=== PATIENT | male | born 1955 | race Caucasian/White ===

== ENCOUNTER 2017-04-12 13:51 | Inpatient (IN) | payer MEDICARE, BC ==
[2017-04-12] VITALS (8 sets, daily range): BP systolic 108–150; BP diastolic 54–78
[~2017-04-12] VITALS: Ht 167.6 cm; Wt 98.6 kg
--- NOTE | ~2017-04-12 | PR ---
[place], [place] PROGRESS NOTE NAME: NANCY EM UNIT #: [id number] ROOM: 518 DOCTOR: JOSE DANIEL MENENDEZ DO BIRTHDATE: [birth year] DOS: 04/15/2017 SUBJECTIVE: The patient is noted to be seen and evaluated today with Dr. Mackenzie. The patient is alert, awake and responsive. The patient denies any nausea, vomiting, diarrhea, chest pain or shortness of breath. PHYSICAL EXAMINATION: VITAL SIGNS: Temperature 97.8, pulse 93, respiratory rate 20, blood pressure 113/86, pulse ox of 98 on 3 liters nasal cannula. HEENT: Chronic obesity. No changes. NECK: Supple. CARDIOVASCULAR: S1, S2 audible. LUNGS: Noted without crackles. Mild expiratory wheeze. ABDOMEN: Soft, obese, nontender. EXTREMITIES: Mild chronic edema. LABORATORY DATA: White cell count 11.1, hemoglobin 9.4, platelet count 190. Chemistry: Sodium of 132, potassium 4.4, BUN 30, creatinine 3.65, glucose of 298. INR of 2.6. MICROBIOLOGY: Blood cultures preliminary shows no bacterial growth. IMAGING: Chest x-ray from yesterday showed mild cardiomegaly, hyperaerated lungs without any acute pulmonary disease. IMPRESSION: 1. Acute hypercapnic and hypoxic respiratory failure secondary to acute exacerbation of chronic obstructive pulmonary disease, improving. 2. Chronic nicotine dependence. 3. End-stage renal disease, on dialysis. 4. Atrial fibrillation with rapid ventricular rate, rate controlled. Cardiology following. 5. Metabolic encephalopathy, resolved. 6. Chronic moderate obesity. 7. Hypercoagulable state. PLAN: 1. Continue antibiotic, steroid, bronchodilator. The patient can be started on doxycycline 100 mg p.o. b.i.d. 2. The patient is planning to get dialysis per Nephrology. 3. The patient has been switched to Cardizem p.o. by Cardiology. 4. Additional treatment changes will be made for the patient based on the improvement in the respiratory status or other changes. JOSE DANIEL MENENDEZ DO [place], [place] PROGRESS NOTE NAME: NANCY EM UNIT #: [id number] ROOM: [facility] DOCTOR: JOSE DANIEL MENENDEZ DO BIRTHDATE: [birth year] JOAQUIN MACKENZIE MD CM:PNRAUDEL [id number] JOSE DANIEL MENENDEZ DO 04/15/17 1238 interface
--- NOTE | ~2017-04-12 | PR ---
[place], [place] PROGRESS NOTE NAME: [id number] UNIT #: [id number] ROOM: 518 DOCTOR: JOSE DANIEL MENENDEZ DO BIRTHDATE: [birth year] DOS: 04/14/2017 SUBJECTIVE: The patient is noted to be seen and evaluated today with Dr. Mackenzie. The patient is alert, awake and responsive. The patient denies any nausea, vomiting, diarrhea, lightheadedness, dizziness, chest pain or shortness of breath. The patient is no longer confused today and has plans to get dialysis later today. OBJECTIVE: VITAL SIGNS: Temperature 97.2, pulse 94, respiratory rate 20, blood pressure 111/48, pulse ox is 100% on 3.5 liters nasal cannula. GENERAL: The patient is awake, alert, no distress. HEENT: Show no change. CARDIOVASCULAR: S1, S2 audible. LUNGS: Diminished at the bases. No rales, rhonchi or wheezing. EXTREMITIES: No cyanosis, erythema. AV fistula noted on the right upper extremity. NEUROLOGIC: Grossly intact today. No focal neurological deficits. SKIN: No change. LABORATORY DATA: Blood gas: pH of 7.3, pCO2 of 50.7, pO2 of 69.3, bicarbonate of 27.5. CBC: White cell count of 15.4, hemoglobin 9.1, platelet count of 210. Chemistry: Sodium of 133, BUN of 37, chloride of 94, creatinine of 4.88, glucose of 267. INR of 2.5. Blood cultures are pending to date. IMAGING: Chest x-ray done this morning showed mild cardiomegaly, hyperaerated lungs without acute pulmonary disease. IMPRESSION: 1. Acute hypercapnic and hypoxic respiratory failure secondary to acute exacerbation of chronic obstructive pulmonary disease. 2. Chronic nicotine dependence. 3. End-stage renal disease, on dialysis. 4. Atrial fibrillation with rapid ventricular response. 5. Questionable pneumonia versus atelectasis of the right lower lobe noted. 6. Metabolic encephalopathy, resolved. 7. Chronic anticoagulation/hypercoagulable state. 8. Chronic moderate obesity. PLAN: 1. Continue antibiotics, steroids and bronchodilators. 2. Continue BiPAP and maintain oxygen above 90%. 3. The patient is planning to get dialysis per nephrology. 4. The patient is noted to be on Cardizem drip and cardiology has been following. 5. Additional treatment changes will be made for the patient based on improvement in the respiratory status or any other changes. [place], [place] PROGRESS NOTE NAME: NANCY EM UNIT #: [id number] ROOM: 8 DOCTOR: JOSE DANIEL MENENDEZ DO BIRTHDATE: [birth year] JOSE DANIEL MENENDEZ DO JOAQUIN MACKENZIE MD CM:PNRAUDEL [id number] JOSE DANIEL MENENDEZ DO 04/14/17 1609 interface
--- NOTE | ~2017-04-12 | PR ---
[place], [place] PROGRESS NOTE NAME: NANCY EM UNIT #: [id number] ROOM: 518 DOCTOR: JOAQUIN SWEENEY MD BIRTHDATE: [birth year] DOS: 04/14/2017 SUBJECTIVE: The patient was independently seen with [id number] encounter. The history was confirmed from the patient, personally physical examination performed. All the labs were reviewed. Any changes in treatment, other recommendations were personally made for today's visit. The patient has been noted fully awake and alert at this time, has used the BiPAP as ordered with improvement in the mental status. Shortness of breath seemed to be decreased for the patient significantly as well. The patient denies symptoms of chest pain. He has been noted with some cough. OBJECTIVE: VITAL SIGNS: For the patient which were recorded showed the temperature noted as normal at this time, respiratory rate 20, heart rate 94, blood pressure 111/48. Pulse oxygen saturation of the patient was noted on 3 liters canula 93% saturation. HEENT: Chronic obesity. NECK: Supple. CARDIOVASCULAR: S1, S2 audible. LUNGS: The patient was noted without any crackles. The expiratory wheezing was noted decreased in the lungs bilaterally. ABDOMEN: Soft, obese, nontender. EXTREMITIES: Shows mild edema, chronic changes. LABORATORY DATA: Arterial blood gas this morning 3.5 liters nasal cannula, pH of 7.35, pCO2 of 50.7, pO2 of 69.3. Renal function panel for today, BUN 37, creatinine 4.88, glucose 267. INR was noted and repeated, which is 2.7. IMPRESSION: Marked improvement in the respiratory status was noted for this patient with resolving acute chronic hypoxic respiratory failure with exacerbation of chronic obstructive pulmonary disease responding to treatment very well. PLAN OF TREATMENT: The patient will be recommended continuation of the BiPAP as ordered. Continuation of current dose of corticosteroids. Continue oxygen supplementation intermittently when the patient is not using the BiPAP. Additional treatment changes need to be made for patient with the progression of the illness. The note which was done by the medical collections specialist was approved. [place], [place] PROGRESS NOTE NAME: NANCY EM UNIT #: [id number] ROOM: 518 DOCTOR: AZIZ JOAQUIN MONTEMAYOR MD BIRTHDATE: [birth year] JOAQUIN MATHIS MD CM:ISIDORO [id number] JOAQUIN MONTEMAYOR MD 04/15/17 0246 interface
--- NOTE | ~2017-04-12 | CON ---
[place], [place] REPORT OF CONSULTATION NAME: NANCY EM UNIT #: [id number] ROOM: 518 DOCTOR: JOAQUIN SWEENEY MD BIRTHDATE: [birth year] DOS: 04/13/2017 REASON FOR CONSULTATION: The consultation requested by the Hospitalist Service for assessment of symptoms of COPD exacerbation with a decreased responsiveness. The patient was personally seen with [id number] encounter today. Physical assessment performed. The history was confirmed. The assessment and management, which has been done for this patient today was personally made for his management as well as the changes made for the patient personally done in the management after my personal assessment. The note which was done by the bilingual medical receptionist was for the consultation was approved as well. HISTORY OF PRESENT ILLNESS: This is a 61-year-old white male who has been admitted to the hospital on 04/12/2017 under care of the hospitalist services. The patient was brought to the hospital. The patient received the hemodialysis for renal failure and the patient developed significant tachycardia. The patient's blood pressure was also noted to be elevated after that. He has been currently admitted to the hospital, noted with progressive change in mental status with decreased responsiveness. The arterial blood gases of the patient was done shows evidence of significant hypercapnia and reduced pH. The patient was also noted expiratory wheezing. He has been described some symptoms of shortness of breath previously. REVIEW OF SYSTEMS: The review of this patient could not be performed. The history has been essentially reviewed for documentation by other physicians note. The patient had not been able to give me the history. PAST MEDICAL HISTORY: 1. The patient was known with history of chronic atrial fibrillation. 2. End-stage renal failure, on hemodialysis. 3. Chronic obesity. PAST SURGICAL HISTORY: 1. Reported AV fistula formation. 2. Surgery of the knee, neck, and appendectomy. SOCIAL HISTORY: The patient has been reported with history of tobacco use, a pack of cigarettes per day for the past 50 years as reported in the history. FAMILY HISTORY: History of diabetes mellitus, hypertension and coronary artery disease. HOME MEDICATIONS: Reported use of aspirin, citalopram, gabapentin, Keppra, Synthroid, Claritin, magnesium oxide, Protonix, Renvela, simvastatin, Flomax and Coumadin. DRUG ALLERGIES: REPORTED NO KNOWN DRUG ALLERGIES. PHYSICAL EXAMINATION: GENERAL: A 61-year-old male who has been currently noted at this time with [place], [place] REPORT OF CONSULTATION NAME: [facility] EM [facility]: [id number] UNIT #: [id number] ROOM: 518 DOCTOR: DELFINA MONTEMAYOR MD,JOAQUIN BIRTHDATE: [birth year] decreased responsiveness, arousable to vocal commands, but does not have any verbal communication at the present time. VITAL SIGNS: The patient's height was recorded as 5 feet 6 inches, weight 217 pounds with BMI of 35.0. The vital signs, which was recorded for this patient shows the temperature was noted as normal. Respiratory rate 18-20, the heart rate of 150 on admission with atrial fibrillation, currently noticed 75 beats per minute. Blood pressure 130/56 this morning and previously noted as 140/67. Intake for the patient is 1080, output was none because of the renal failure history. Pulse oxygen saturation for the patient on 2-3 L nasal cannula noted 98% saturation. HEENT: Moderate obesity. Head was atraumatic. Decreased pharyngeal space, high tongue base crowding of soft tissue structures. LUNGS: Noted with generalized reduced air entry of the lungs bilaterally, was noted with expiratory wheezing in the lungs. There were no crackles. ABDOMEN: Soft, nontender with obesity. EXTREMITIES: The patient was noted with edema. CENTRAL NERVOUS SYSTEM: Decreased responsiveness and further examination could not be performed. SKIN: Showed no lesions or rashes. MUSCULOSKELETAL: Does not show any acute deformities. LABORATORY DATA: Lactic acid yesterday on admission noted as 1.9. CBC yesterday on admission, hemoglobin 10.6, hematocrit 33.6, WBC count normal, platelet count was normal. PT/INR for patient noted 2.3 yesterday, which was therapeutic. CMP of the patient that was done yesterday shows BUN of 10, creatinine 2.79, glucose 174, sodium 133. CPK 610, CK-MB of 10.0. Troponin minimally elevated at 0.50. The repeat troponin of patient essentially noted the same as yesterday. CBC that was done this morning for the patient shows hemoglobin 9.5, hematocrit 30.0, WBC count normal, platelet count was normal. The INR this morning was still noted subtherapeutic as 2.2. CMP this morning, BUN 21, creatinine 3.93, glucose 283. Sodium 134. Arterial blood gas this morning, 2 liters, pH of 7.31, pCO2 of 55, pO2 of 68.9. RADIOLOGY DATA: Chest x-ray shows mild patchy area of infiltration was suspected in the right lower lobe. There was no significant visible pleural effusions or other abnormalities. IMPRESSION: 1. The patient who has been currently admitted to the hospital noted with acute hypercapnic and hypoxic respiratory failure secondary to acute exacerbation of chronic obstructive pulmonary disease, likely. 2. Chronic nicotine dependence. 3. End-stage renal failure, on hemodialysis. 4. Atrial fibrillation with rapid ventricular response. 5. Questionable pneumonia versus atelectasis of the right lower lobe was also currently noted. 6. Chronic anticoagulation, which has been noted therapeutic at the present time. 7. Change in mental status secondary to the above. 8. History of chronic moderate obesity as well. [place], [place] REPORT OF CONSULTATION NAME: NANCY EM UNIT #: [id number] ROOM: 518 DOCTOR: DELFINA MONTEMAYOR MD,JOAQUIN BIRTHDATE: [birth year] PLAN OF MANAGEMENT: The patient has been started on the BiPAP for this patient in the settings of 17/05 to improve the ventilatory status and hypoxemia. Arterial blood gas will be done in the next couple of hours to reassess with the patient, ventilatory improvement and hypoxemia. Further decision change in treatment would be done based on progression of the illness. I will be ordering PA lateral chest x-ray of the patient for clear assessment of current right lower lobe abnormality to determine if there is any pneumonia or history of atelectasis. At this time, the patient's current clinical history not suggestive of any findings of acute pneumonia. Other supportive therapy, plan of management to be continued as in progress. Bronchodilator will be given every 4 hours. Use of the intravenous Solu-Medrol for the medical management of COPD is already noted in progress. Additional treatment changes will be made for this patient based on the improvement in the respiratory status or any other changes. JOAQUIN MATHIS MD CM:CONSTR:REPORT OF CONSULTATION 1227 04/14/17 0359 interface
--- NOTE | ~2017-04-12 | PR ---
[place], [place] PROGRESS NOTE NAME: NANCY EM UNIT #: [id number] ROOM: 518 DOCTOR: JOAQUIN SWEENEY MD BIRTHDATE: [birth year] DOS: 04/15/2017 ADDENDUM PULMONARY PROGRESS NOTE The patient was seen and examined today with [id number] encounter. The history was confirmed, physical examination personally performed, the labs were personally reviewed and a decision in changes in medical management personally made for today's visit. The note which was done by the director global medical affairs was approved. SUBJECTIVE: The patient was seen and examined on 04/15/2017. He has been noted without any ongoing acute new respiratory complaints at the present time. Shortness of breath has been improving. There were no symptoms of chest pain. The patient has not reported any symptoms of hemoptysis. OBJECTIVE: VITAL SIGNS: For the patient, which has been recorded for this patient showed the temperature of the patient noted as normal. Respiratory rate 20, heart rate 93, blood pressure 132/86 to 142/68. HEENT: Chronic obesity. NECK: Supple. CARDIOVASCULAR: S1, S2 audible. LUNGS: For this patient was noted without any wheezing or crackles. ABDOMEN: Soft, nontender. LABORATORY DATA: INR today were noted 2.6, which is therapeutic. BMP: BUN 30, creatinine 3.65. IMPRESSION: The patient has been noted with continued gradual reduction and improvement and resolution of the acute exacerbation of chronic obstructive pulmonary disease with acute tracheobronchitis, improving mental status changes with acute on chronic hypercapnic and hypoxic respiratory failure. The patient has prospect antibiotic will be discontinued. PLAN OF TREATMENT: The patient had been started on antibiotics such as doxycycline orally. Continuation of the corticosteroids. Continue use of the BiPAP. Discharge planning could be made for this patient for the home, maybe in the next 24 hours. Usual care. Continued use of the BiPAP at night time. Outpatient assessment will be recommended for patient for obstructive sleep apnea disorder upon discharge. [place], [place] PROGRESS NOTE NAME: NANCY EM UNIT #: [id number] ROOM: 518 DOCTOR: JOAQUIN SWEENEY MD BIRTHDATE: [birth year] JOAQUIN MATHIS MD CM:PNTRANS [phone] JOAQUIN MONTEMAYOR MD 04/15/171916 interface
--- NOTE | ~2017-04-12 | CON ---
[place], [place] REPORT OF CONSULTATION [id number] UNIT #: [id number] ROOM: 518 DOCTOR: JOSE DANIEL MENENDEZ DO BIRTHDATE: [birth year] DOS: 04/13/2017 REASON FOR CONSULTATION: COPD exacerbation. CHIEF COMPLAINT: The patient initially came in for elevated blood pressure and tachycardia. HISTORY OF PRESENT ILLNESS: The patient initially was at the dialysis, getting treatment and had pulse of 156 and possible AFib, but too rapid to interpret heart rate. The patient did admit to having history of AFib, denied any complaint. The patient refused to come initially, but he was told at dialysis to come and report to the ED. The patient stated he did not feel fluttering of chest, shortness of breath or dizziness or chest pain at that time while he was receiving dialysis. He said that he has been receiving dialysis for over 3 years, on Wednesday, Wednesday, Wednesday. The patient had shortness of breath. The patient denied any cough. The patient denied any sputum production. The patient continues to smoke. PAST MEDICAL HISTORY: 1. Atrial fibrillation. 2. End-stage renal disease on dialysis. 3. Severe protein calorie malnutrition. PAST SURGICAL HISTORY: AV fistula, history of knee surgery, history of neck surgery, history of appendectomy. SOCIAL HISTORY: Current smoker, does not drink alcohol. There is history of illicit drug use. FAMILY HISTORY: Mother age of 84, , father age of 74, . ALLERGIES: No known allergies. HOME MEDICATIONS: Aspirin 81 mg p.o. daily, escitalopram 10 mg p.o. daily, gabapentin 300 mg p.o. daily, Levacetam 250 mg p.o. b.i.d. on Wednesday, Wednesday and Wednesday, levothyroxine 112 mcg p.o. daily, Claritin 10 mg p.o. every other day, magnesium oxide 400 mg p.o. b.i.d., Protonix 40 mg daily, Renvela 800 mg p.o. t.i.d., simvastatin 20 mg p.o. daily, Tamsulosin 0.4 mg p.o. daily, Warfarin 2 mg p.o. daily. REVIEW OF SYSTEMS: CONSTITUTIONAL: Denies fever, chills, weight gain, weight loss. EYES: Denies burning, redness, or tenderness. ENT: No sore throat, hoarseness, otalgia, postnasal drainage. CARDIOVASCULAR: Denies anginal pain or palpitations. Denies lower extremity edema. RESPIRATORY: Mild shortness of breath. Denies sputum or cough. Denies paroxysmal nocturnal dyspnea. GASTROINTESTINAL: Denies dysphagia, nausea, vomiting, diarrhea, abdominal pain, melena, rashes. [place], [place] REPORT OF CONSULTATION NAME: NANCY EM UNIT #: [id number] ROOM: 518 DOCTOR: JOSE DANIEL MENENDEZ DO BIRTHDATE: [birth year] SKIN: Denies lesions or rashes. CENTRAL NERVOUS SYSTEM: Denies dizziness, diplopia, headache or syncopal episode. Remaining systems were reviewed with the patient. They were all negative. PHYSICAL EXAMINATION: VITAL SIGNS: Temperature of 97.9, pulse of 75, respiratory rate of 18, blood pressure of 130/66, pulse ox 98% on 2 liters of nasal cannula. GENERAL: Responsive, mild distress. HEAD: Normocephalic, atraumatic. ENT: No lesions or scars of the eye, nonicteric. Nares patent. No pharyngeal erythema. NECK: Without lesion mass. Trachea midline. HEART: Tachycardia. Carotids free of bruit, muffled heart sounds. LUNGS: Shortness of breath, mild cough. No rales, rhonchi, stridor, mild expiratory wheezing and rhonchi. ABDOMEN: Soft, positive bowel sounds, nontender, nondistended, obese abdomen. EXTREMITIES: Left upper extremity AV fistula noted. No clubbing, no cyanosis, no erythema, no edema. NEUROLOGIC: No focal neurological deficit. PSYCHOLOGIC: Poor historian. SKIN: Ecchymosis over bilateral upper extremities. LABORATORY DATA: White cell count of 6, hemoglobin of 9.5 and platelet count of 207 was noted on 04/13/2017, white cell count of 7.5, hemoglobin of 10.6 and platelet count of 208 was noted on 04/12/2017. Chemistry: Sodium of 134, carbon dioxide of 27, BUN of 21, creatinine of 3.93 and glucose of 283 was noted on 04/13/2017, sodium of 133, potassium of 4.1, carbon dioxide of 29, BUN of 10, creatinine of 2.79 and glucose of 174 was noted on 04/12/2017. Blood gas of pH of 7.3, pCO2 of 55.7, HCO3 of 27.9, was noted on 04/13/2017. INR of 2.2. MICROBIOLOGY: Blood cultures are pending to date. IMAGING: Chest x-ray done on 04/12/2017 showed mild peribronchial thickening and patchy airspace opacity right lower lobe, finding may represent bronchitis and right lower lobe infiltrate. ASSESSMENT AND PLAN: 1. BiPAP settings were changed by Dr. Mackenzie. 2. ABGs were ordered. 3. Please refer to Dr. Mackenzie's assessment and plan. Thank you for the consultation. JOSE DANIEL MENENDEZ DO [place], [place] REPORT OF CONSULTATION NAME: MARIA ANTONIANANCY UNIT #: [id number] ROOM: 518 DOCTOR: JOSE DANIEL MENENDEZ DO BIRTHDATE: [birth year] JOAQUIN MACKENZIE MD CM:CONSTR:REPORT OF CONSULTATION 1048 04/13/17 1902 interface
--- NOTE | 2017-04-12 13:51 | NUR ---
EKG WAS DONE BY MYSELF. EKG WAS UNAVALIABLE
[2017-04-12 14:18] LABS: BASO % 0.4 % (0.0-1.0); EOS # 0.2 10*3/uL (0.0-0.4); EOS % 2.8 % (1.0-4.0); HEMATOCRIT 33.6 % (42.0-52.0); HEMOGLOBIN 10.6 g/dl (14.0-18.0); LYMPH % 13.1 % (27.0-41.0); MEAN CELL VOLUME 98.2 fl (80.0-94.0); MEAN CORPUSCULAR HGB CONC 31.5 g/dl (33.0-37.0); MEAN PLATELET VOLUME 9.3 fl (9.6-12.3); MONO # 0.4 10*3/uL (0.1-1.0); MONO % 5.2 % (3.0-9.0); NEUT # 5.9 10*3/uL (2.3-7.9); NEUT % 77.8 % (47.0-73.0); PLATELET COUNT AUTOMATED 208 10*3/uL (130-400); RED BLOOD COUNT 3.42 10*6/uL (4.50-5.90); RED CELL DISTRI WIDTH 15.1 % (0-14.5); WHITE BLOOD COUNT 7.5 10*3/uL (4.8-10.8)
[2017-04-12 14:34] LABS: ALBUMIN 2.6 gm/dl (3.1-4.5); CREATININE 2.79 mg/dL (0.70-1.30); MAGNESIUM 2.1 mg/dL (1.5-2.1); POTASSIUM 4.1 mmol/L (3.5-5.1); TOTAL PROTEIN 7.6 gm/dL (6.4-8.2)
[2017-04-12 14:36] LABS: ACT PARTIAL THROMBO TIME 39.1 SECONDS (20.8-31.5); INTERNATIONAL NORM RATIO 2.3 (2.0-3.5)
[2017-04-12 14:51] LABS: CKMB 10.2 ng/ml (0.5-3.6); TROPONIN I 0.05 ng/ml (<0.045)
--- NOTE | 2017-04-12 15:06 | NUR ---
CARDIZEM INFUSING, PULSE IMPROVED TO 106 NOW.
--- NOTE | 2017-04-12 16:00 | NUR ---
PATIENT TO FLOOR VIA CART FROM ER BY RN. IV INTACT. WITH PATIENT. OXYGEN INTACT. PATIENT AWAKE, ALERT AND TALKING
--- NOTE | 2017-04-12 16:40 | NUR ---
A 61, admitted to 5E, under the services of VILLA Aguirre DO with a diagnosis of COPD EXACERBATION, PNEUMONITIS, A-FIB-RVR. Chief complaint is SOB. Patient arrived via ambulance from ER. Monitor applied. Initial assessment completed. Vital signs taken and recorded. VILLA AGUIRRE DO notified of admission to the unit. Orders received. See assessment for past medical history, medications and allergies. Patient and/or family oriented to unit. [facility] visitation policy reviewed. Clothing/patient valuable form completed. LYLE WALLER
--- NOTE | 2017-04-12 20:00 | NUR ---
PT RESTING QUIETLY IN BED. AWOKE EASILY. DENIES C/O PAIN. CARDIZEM INFUSING AT 10ML/HR ORDERED. HR IRR IN 100'S. PT ABLE TO MOVE TOES TO LT FOOT WHEN ASKED. CAST TO LLE DRY/INTACT. + THRILL/BRUIT NOTED TO FISTULA IN LUE. CALL LIGHT IN REACH.
--- NOTE | 2017-04-12 20:24 | NUR ---
DR. STRATTON NOTIFIED OF CRITICAL TROPONIN OF 0.057. NO N.O. RCVD AT THIS TIME.
[2017-04-12] MEDS ORDERED: ASPIR 8181 MG PO (20:30)
[2017-04-12] MEDS ORDERED: ESCITALOPRAM OX10 MG PO (20:35)
[2017-04-12] MEDS ORDERED: NEURONTIN300 MG PO (20:36)
[2017-04-12] MEDS ORDERED: LEVOXYL112 MCG PO (20:38)
[2017-04-12] MEDS ORDERED: CLARITIN10 MG PO (20:41)
[2017-04-12] MEDS ORDERED: MAGNESIUM OXID400 MG PO (20:42)
[2017-04-12] MEDS ORDERED: PANTOPRAZOLE SO40 MG PO (20:43)
[2017-04-12] MEDS ORDERED: RENVELA800 MG PO (20:44)
[2017-04-12] MEDS ORDERED: SIMVASTATIN20 MG PO (20:46)
[2017-04-12] MEDS ORDERED: SPRITAM250 MG PO ×2 (20:48→20:50)
[2017-04-12] MEDS ORDERED: TAMSULOSIN HCL0.4 MG PO (20:51)
[2017-04-12] MEDS ORDERED: WARFARIN SOD2 MG PO (20:52)
[2017-04-13] VITALS (13 sets, daily range): BP systolic 125–147; BP diastolic 54–79
[2017-04-13 07:38] LABS: BASO % 0.2 % (0.0-1.0); HEMOGLOBIN 9.5 g/dl (14.0-18.0); LYMPH # 0.5 10*3/uL (1.3-4.4); LYMPH % 8.4 % (27.0-41.0); MEAN CORPUSCULAR HGB CONC 31.7 g/dl (33.0-37.0); MEAN PLATELET VOLUME 9.3 fl (9.6-12.3); MONO # 0.1 10*3/uL (0.1-1.0); MONO % 1.2 % (3.0-9.0); NEUT # 5.3 10*3/uL (2.3-7.9); NEUT % 89.4 % (47.0-73.0); PLATELET COUNT AUTOMATED 207 10*3/uL (130-400); RED BLOOD COUNT 3.06 10*6/uL (4.50-5.90); RED CELL DISTRI WIDTH 15.3 % (0-14.5)
[2017-04-13 08:07] LABS: ACT PARTIAL THROMBO TIME 39.9 SECONDS (20.8-31.5); INTERNATIONAL NORM RATIO 2.2 (2.0-3.5)
[2017-04-13 08:10] LABS: ALBUMIN 2.4 gm/dl (3.1-4.5); CREATININE 3.93 mg/dL (0.70-1.30); MAGNESIUM 2.3 mg/dL (1.5-2.1); PHOSPHOROUS 3.4 mg/dL (2.5-4.9); POTASSIUM 4.1 mmol/L (3.5-5.1); TOTAL PROTEIN 7.1 gm/dL (6.4-8.2)
[2017-04-13 08:15] LABS: THYROID STIM HORMONE (HS) 0.602 uIU/ml (0.358-4.75)
[2017-04-13 08:33] LABS: ABG BASE EXCESS 1.5 mmol/L (-2.0-2.0); ABG HCO3 27.9 mmol/l (22-26); ABG O2 SATURATION 93.1 % (95-97); ARTERIAL BLOOD GAS PCO2 55.7 mmHg (35-45); ARTERIAL BLOOD GAS PH 7.318 (7.35-7.45); ARTERIAL BLOOD GAS PO2 68.9 mmHg (80-90)
--- NOTE | 2017-04-13 09:00 | NUR ---
case management attempted to visit with patient, patient was just placed on bipap, will see later today
--- NOTE | 2017-04-13 09:13 | NUR ---
DR. MATHIS ON FLOOR AWARE OF CONSULT.
--- NOTE | 2017-04-13 09:42 | NUR ---
DR. LARSEN AND DR. ROSALES IN TO SEE PT.
--- NOTE | 2017-04-13 09:45 | NUR ---
PT RESTING IN BED, AWAKENS BUT VERY DROWSY. BYPAP INUSE. CARDIZEM DRIP INFUSING WITH NO PROBLEM. BP 134/60 MANUALLY. CAST TO LEFT LEG, TOES RED ABLE TO MOVE WITH NO PROBLEM, SOME EDEMA NOTED TO LEFT FOOT. FISTULA TO LEFT ARM +BRUIT AND THRILL. CALL LIGHT IN REACH. BED ALARM ON.
[2017-04-13 11:12] LABS: VITAMIN D, 25-HYDROXY 10.9 ng/mL (30-100)
[2017-04-13 11:29] LABS: ABG BASE EXCESS 2.1 mmol/L (-2.0-2.0); ABG HCO3 27.7 mmol/l (22-26); ABG O2 SATURATION 94.5 % (95-97); ARTERIAL BLOOD GAS PCO2 50.7 mmHg (35-45); ARTERIAL BLOOD GAS PH 7.354 (7.35-7.45); ARTERIAL BLOOD GAS PO2 71.8 mmHg (80-90)
--- NOTE | 2017-04-13 11:39 | NUR ---
case management attempted to visit with patient, patient remains on bipap and is not able to talk with case management at this time
--- NOTE | 2017-04-13 12:24 | NUR ---
CALLED DR. CONRAD MADE AWARE UNABLE TO GET PT TO WAKE UP ENOUGH TO GIVE MEDICATIONS.
--- NOTE | 2017-04-13 12:41 | NUR ---
This nurse was asked to asked to evaluate patient's area to left buttocks. The area is red and blanchable. I would recommend hydraguard for prevention of area reopening.
--- NOTE | 2017-04-13 13:00 | NUR ---
SPOKE WITH PT WANTS TO TALK TO DOCTOR REGARDING HIS CONDITION. CALLED DR. CONRAD MADE AWARE AND GAVE NAME AND NUMBER.
--- NOTE | 2017-04-13 14:30 | NUR ---
PT DROWSY LYING IN BED WITH EYES CLOSED. BYPAP IN USE. REPOSITIONED IN BED. PT AWAKENS AND MOVES HIMSELF IN BED. CARDIZEM INFUSING WITH NO PROBLEM. CALL LIGHT IN REACH.
--- NOTE | 2017-04-13 16:45 | NUR ---
PT AWAKE AND ALERT ON BIPAP. PT REMOVED AND PLACED ON 3L NC. PT ALERT AND ORIENTED X3. RESP EASY AND NONLABORED. PT EATING DINNER WITHOUT DIFFICULTY. PM PILLS TAKEN. CARDIZEM INFUSING WITHOUT DIFFICULTY. CALL LIGHT IN REACH. WILL MONITOR
--- NOTE | 2017-04-13 22:00 | NUR ---
PT STATES THAT PAIN MED WAS EFFECTIVE FOR PAIN RELIEF.
[2017-04-14] VITALS (13 sets, daily range): BP systolic 111–168; BP diastolic 48–84
--- NOTE | 2017-04-14 00:05 | NUR ---
pt placed on bipap post tx
--- NOTE | 2017-04-14 01:33 | NUR ---
24 HR chart check completed.
[2017-04-14 06:50] LABS: HEMOGLOBIN 9.1 g/dl (14.0-18.0); MEAN CORPUSCULAR HGB CONC 30.3 g/dl (33.0-37.0); MEAN PLATELET VOLUME 9.7 fl (9.6-12.3); NUCLEATED RED BLOOD CELL 0.2 % (0.0-0.0); PLATELET COUNT AUTOMATED 210 10*3/uL (130-400); RED BLOOD COUNT 3.03 10*6/uL (4.50-5.90); RED CELL DISTRI WIDTH 15.2 % (0-14.5); WHITE BLOOD COUNT 15.4 10*3/uL (4.8-10.8)
[2017-04-14 07:14] LABS: ALBUMIN 2.4 gm/dl (3.1-4.5); CREATININE 4.88 mg/dL (0.70-1.30); POTASSIUM 4.9 mmol/L (3.5-5.1)
[2017-04-14 07:19] LABS: INTERNATIONAL NORM RATIO 2.5 (2.0-3.5)
[2017-04-14 07:33] LABS: ABG BASE EXCESS 1.9 mmol/L (-2.0-2.0); ABG HCO3 27.5 mmol/l (22-26); ABG O2 SATURATION 92.7 % (95-97); ARTERIAL BLOOD GAS PCO2 50.7 mmHg (35-45); ARTERIAL BLOOD GAS PH 7.353 (7.35-7.45); ARTERIAL BLOOD GAS PO2 69.3 mmHg (80-90)
[2017-04-14 07:38] LABS: POLYCHROMASIA SLIGHT; TOTAL CELLS COUNTED 100 #CELLS
[2017-04-14 07:39] LABS: PLATELET SUFFICIENCY NORMAL (NORMAL)
--- NOTE | 2017-04-14 08:22 | NUR ---
PATIENT TO DIALYSIS.
--- NOTE | 2017-04-14 09:29 | NUR ---
Pediatric Genetic Counselor in to talk to patient. Patient states lives at home with . There are few steps in the home. Physician: emily alston Pharmacy: Home health services: none Patient's level of ADLs: INDEPENDENT Patient has working utilities: all working DME: nebulizer, home oxygen, portable tanks, bedside commode, hospital bed Follow-up physician's appointment after d/c: will be made by hospitalist nurse director upon discharge Does patient want to access PORTAL?: no Discharge plan discussed with patient, patient more awake today, he states he lives at home with his , he gets around fine, is independent in adls and he goes to Dialysis Wednesday, Wednesday and Wednesday, he doesn't drive but uses transportation from [place], patient states he will be going home upon discharge and also states he has everything he needs at home. RHINA GIBBS
--- NOTE | 2017-04-14 12:45 | NUR ---
PATIENT RETURNED FROM DIALYSIS.
--- NOTE | 2017-04-14 13:18 | NUR ---
SPEECH PATHOLOGY Orders for swallowing evaluation received and chart review completed. Assessment attempted this pm however patient was out of room and unavailable. Will attempt again at a later time. BRENDA LEE MS CCC-ERP ANALYST
--- NOTE | 2017-04-14 18:02 | NUR ---
MEDICATED WITH NORCO FOR PAIN IN LEFT FOOT HE RATES AN 8.
--- NOTE | 2017-04-14 19:38 | NUR ---
PATIENT IS AWAKE, ALERT AND ORIENTED X3. PLEASANT AND COOPERATIVE WITH ASSESSMENT. LUNGS ARE DIMINIASHED WITH FAINT WHEEZES TO BILATERAL UPPER LUNG HANKS POSTERIORLY. O2 VIA NASAL CANNULA AT 3LPM. ABDOMEN IS OBESE, NORMOACTRIVE X 4 QUADS. PATIENT DENIES ANY NAUSEA, VOMITTING, OR TENDERNESS. NO EDAM TO BLE, PPP. LEFT LOWER LEG HAS A CAST IN PLACE, TOES ARE DEEP PINK, PATIENT ABLE TO WIGGLE TOES AND DENIES ANY ISSUES. PATIETN DENIES ANY PAINO R DISCOMFORT AT THE PRESENT TIME. CALL LIGHT IS IN REACH.
--- NOTE | 2017-04-14 20:21 | NUR ---
24 HOUR CHART CHECK COMPLETED AT THIS TIME.
--- NOTE | 2017-04-14 21:28 | NUR ---
ALL BEDTIEM MEDICATIONS TAKE WITH EASE AT THIS TIME. PATISERAN DENIES ANY FURTHER NEEDS. CALL LIGHT IS IN REACH. MARK REPOSITIONED AND PULLED UP IN BED.
--- NOTE | 2017-04-14 22:50 | NUR ---
MARK REQUESTED PAIN MEDICAITON FOR C/O PAIN IN HIS MOTH STATES THAT HE HAS BROKEN TEETH THAT HURT HIM BADLY . PRN YANELIS GIVEN AT THIS TIME. CALL LIGHT IS IN REACH.
--- NOTE | 2017-04-14 22:50 | NUR ---
PATIENT REFUSING THE BI-PAP. 1:1 WITH PATIETN INEFFECTIVE PATIENT STATES THAT THEY BI-PAP MAKES HIM ANXIOUS AND HE IS UNABLE TO SLEEP . DR. STRATOTN AWARE AND STATES THAT HE WILL ORDER SOMETHING FOR THIS PATIENT TO RELAX HIM SO THAT HE CAN WEAR THE BI-PAP.
--- NOTE | 2017-04-14 23:59 | NUR ---
PER PATIENT ORCO HAS BEEN EFFECTIVE AT THIS TIME. ALSO PRN ATIVAN GIVEN PER MAN. MARK AGREES TO WEAR BI-PAP NOW THAT HE HAS MEDICAITON TO RELAX HIM. CALL LIGHT IS IN REACH .
[2017-04-15] VITALS: BP 171/78
--- NOTE | 2017-04-15 00:59 | NUR ---
PATIENT RESTING IN BED WITH EYES CLOSED BILATERALLY. RESPIRAITONS ARE EASY ANS REGULAR. BI-PAP ON AT THIS TIME. NO S/S OF ANXIETY. ATIVAN EFFECTIVE AT THIS TIME. CALL LIGHT IS IN REACH.
[2017-04-15 02:00] VITALS: BP 130/64
[2017-04-15 04:00] VITALS: BP 142/68
--- NOTE | 2017-04-15 05:53 | NUR ---
PATIENT AROUSES EASILY FOR MORNING MEDICATIONS AT THIS TIME. BI-PAP REMOVED, O2 VIA NASAL CANNULA INTACT . PATIENT DENIES ANY NEEDS AT THE PRESENT TIME. CALL LIGHT IS IN REACH.
[2017-04-15 07:30] LABS: HEMOGLOBIN 9.4 g/dl (14.0-18.0); MEAN CELL VOLUME 100.7 fl (80.0-94.0); MEAN CORPUSCULAR HGB 31.5 pg (27.0-31.0); MEAN CORPUSCULAR HGB CONC 31.3 g/dl (33.0-37.0); MEAN PLATELET VOLUME 9.4 fl (9.6-12.3); NUCLEATED RED BLOOD CELL 0.4 % (0.0-0.0); PLATELET COUNT AUTOMATED 190 10*3/uL (130-400); RED BLOOD COUNT 2.98 10*6/uL (4.50-5.90); RED CELL DISTRI WIDTH 15.3 % (0-14.5); WHITE BLOOD COUNT 11.1 10*3/uL (4.8-10.8)
[2017-04-15 07:53] LABS: POLYCHROMASIA SLIGHT; TOTAL CELLS COUNTED 100 #CELLS
[2017-04-15 07:54] LABS: PLATELET SUFFICIENCY NORMAL (NORMAL)
[2017-04-15 08:00] VITALS: BP 133/86
[2017-04-15 08:02] LABS: ALBUMIN 2.6 gm/dl (3.1-4.5); CREATININE 3.65 mg/dL (0.70-1.30); INTERNATIONAL NORM RATIO 2.6 (2.0-3.5); PHOSPHOROUS 3.5 mg/dL (2.5-4.9); POTASSIUM 4.4 mmol/L (3.5-5.1)
--- NOTE | 2017-04-15 08:27 | NUR ---
SPEECH PATHOLOGY Bedside swallow eval. completed as per orders. Patient was alert but with generalized weakness and difficulty maintaining upright status in bed. He frequently needed assistance to keep upright. He was assessed with solid food of mixed consistency and thin liquid. He displayed no overt difficulty with swallowing. Patient denies any acute dysphagia. Recommend he remain on present diet. No follow up treatment is warranted. Patient was educated on univeral safety strategies and he verbalized understanding. Patient's nurse was also educated on results and dora. and verbalized understanding. Refer to report in [facility] for further info. Thank you for this referral. BRENDA LEE MSCCC-FORKLIFT DRIVER
--- NOTE | 2017-04-15 08:53 | NUR ---
SPEECH THERAPY IN TO EVALUATE PT'S SWALLOWING.
--- NOTE | 2017-04-15 09:00 | NUR ---
case management visits with patient, patient denies any home needs
--- NOTE | 2017-04-15 09:10 | NUR ---
PT SIGNED OUT AMA STATING HE WAS UNABLE TO WAIT ANY LONGER TO BE DISCHARGED HE HAD A MEETING FOR PRE OP SURGERY TESTING IN [place] TODAY. DR WINCHESTER MADE AWARE.
--- NOTE | 2017-04-15 09:11 | NUR ---
Patient signed out AMA. Patient encouraged to stay and advised of possible consequences of premature discharge. Physician ANNABELLA and dried yeast supervisor RAPHAEL TRIPLETT notified. Patient instructed what to do regarding care post-departure from the hospital; emergency phone numbers provided. Patent was accompanied by . ORLANDO VALENCIA
--- NOTE | 2017-04-15 10:00 | NUR ---
AM MEDS TAKEN.
[2017-04-15 12:00] VITALS: BP 142/58
[2017-04-15] MEDS ORDERED: Vitamin D PO (12:25)
[2017-04-15] MEDS ORDERED: NATURE'S BLEND F1 MG PO (12:25)
[2017-04-15] MEDS ORDERED: DOXYCYCLINE MO100 M1 PO (12:25)
[2017-04-15] MEDS ORDERED: DILTIAZEM CD240 MG PO (12:26)
[2017-04-15] MEDS ORDERED: PREDNISONE50 MG PO (12:28)
--- NOTE | 2017-04-15 12:56 | NUR ---
PATIENT REFUSES WOUND PICTURE TO BE TAKEN.
--- NOTE | 2017-04-15 14:45 | NUR ---
HEP LOCK REMOVED FOR DISCHARGE. Discharge instructions reviewed with patient/family. Patient receptive and verbalizes understanding. Follow-up care arranged. Written instructions given to patient/family. JOSÉ MIGUEL MORRISON
== END 2017-04-15 14:45 | disposition home or self-care (01) | DRG 871 ==
LOC: ED 13:51 → EDHOLD 15:35 → 5E 15:35
PROVIDERS: Emergency Medicine; Family Medicine; Internal Medicine; Internal Medicine Critical Care Medicine; Internal Medicine Hospice and Palliative Medicine; ADMIT Internal Medicine
PROC: 5A09357 Assistance with Respiratory Ventilation, Less than 24 Consecutive Hours, Continuous Positive Airway Pressure (ICD-10-PCS; principal; 2017-04-13)
PROC: 5A1D00Z (ICD-10-PCS; 2017-04-14)
DX: A41.9 Sepsis, unspecified organism (principal); E43 Unspecified severe protein-calorie malnutrition; J96.21 Acute and chronic respiratory failure with hypoxia; I13.2 Hypertensive heart and chronic kidney disease with heart failure and with stage 5 chronic kidney disease, or end stage renal disease; G93.41 Metabolic encephalopathy; N18.6 End stage renal disease; J18.1 Lobar pneumonia, unspecified organism; D68.59 Other primary thrombophilia; I11.0 Hypertensive heart disease with heart failure; J96.22 Acute and chronic respiratory failure with hypercapnia; I48.92 Unspecified atrial flutter; J44.1 Chronic obstructive pulmonary disease with (acute) exacerbation; J44.0 Chronic obstructive pulmonary disease with (acute) lower respiratory infection; E87.1 Hypo-osmolality and hyponatremia; I50.32 Chronic diastolic (congestive) heart failure; D53.9 Nutritional anemia, unspecified; E11.65 Type 2 diabetes mellitus with hyperglycemia; E78.5 Hyperlipidemia, unspecified; I48.2 Chronic atrial fibrillation; F17.210 Nicotine dependence, cigarettes, uncomplicated; E66.01 Morbid (severe) obesity due to excess calories; E53.8 Deficiency of other specified B group vitamins; E55.9 Vitamin D deficiency, unspecified; Z71.6 Tobacco abuse counseling; S82.92XD Unspecified fracture of left lower leg, subsequent encounter for closed fracture with routine healing; Z99.2 Dependence on renal dialysis; Z90.49 Acquired absence of other specified parts of digestive tract; Z82.49 Family history of ischemic heart disease and other diseases of the circulatory system; Z83.3 Family history of diabetes mellitus; Z79.82 Long term (current) use of aspirin; Z79.01 Long term (current) use of anticoagulants; Z79.899 Other long term (current) drug therapy; Z86.73 Personal history of transient ischemic attack (TIA), and cerebral infarction without residual deficits; Z68.31 Body mass index [BMI] 31.0-31.9, adult

== ENCOUNTER 2017-10-22 12:06 | Inpatient (IN) | payer MEDICARE, BC ==
[2017-10-22] VITALS (11 sets, daily range): BP systolic 68–102; BP diastolic 40–58
[~2017-10-22] VITALS: Ht 167.6 cm; Wt 83.2 kg
--- NOTE | ~2017-10-22 | PR ---
[place], [place] [id number] #: [id number] ROOM: [facility]- DOCTOR: NANCY LARSEN MD BIRTHDATE: [birth year] DOS: 10/25/2017 SUBJECTIVE: The patient was seen at his bedside today, 10/25/2017, for followup of an episode of hypotension, which occurred at dialysis. He is a 62-year-old man who presented to the hospital on 10/22/2017 after becoming unresponsive at dialysis. Staff could not find a pulse, but the patient was not on a patient monitor at that time. They initiated CPR. During CPR, his dialysis access dislodged and he did lose considerable blood. He was brought to the hospital where his initial hemoglobin was 10.4, but fell rapidly to 7.7. He has been transfused at least 2 units of packed cells so far and his hemoglobin today is 8.1. The patient did have several fractured ribs during the event and he does have soreness in his chest, but otherwise feels reasonably well and is anxious to go home. PHYSICAL EXAMINATION: VITAL SIGNS: Today his pulse is 76 and regular, blood pressure is 147/62. He is afebrile. NECK: Supple. He has no jugular distention. Carotids are full. I heard no bruits. He had no neck or supraclavicular masses. LUNGS: Respirations were unlabored. His chest was clear to auscultation and percussion. He is sore over his left anterior chest. HEART: Has a regular rhythm with an S4 gallop. ABDOMEN: Benign. EXTREMITIES: Showed no edema. He does have a left forefoot amputation. LABORATORY DATA: Hemoglobin is 8.1, white count 7700, platelet count 180,000. Sodium 137, potassium 4.8, BUN 37, creatinine 4.8. Serial troponin levels have been unremarkable. I reviewed the preliminary images of his echocardiogram. Left ventricular size and function are normal. There is no significant pericardial effusion. IMPRESSION: 1. Hypotension during dialysis, etiology not determined. No monitor strips are available from the event and he has not had any arrhythmias documented in the hospital. His troponin levels are normal despite having received CPR. 2. Multiple rib fractures from CPR. 3. Diabetes, on insulin. 4. End-stage renal disease, on dialysis. 5. Peripheral vascular disease. 6. Paroxysmal atrial fibrillation and flutter. The patient is currently in sinus rhythm. 7. Blood loss during resuscitation efforts at the dialysis center. The patient has received 2 units of packed cells since his admission. PLAN: Thus far, we see no evidence that the patient has had a cardiac event as the cause for his hypotension. I would continue to replace his blood losses as needed. I think that I would continue to withhold anticoagulation since his [place], [place] PROGRESS NOTE NAME: NANCY EM UNIT #: [id number] ROOM: [facility] DOCTOR: NANCY LARSEN MD BIRTHDATE: [birth year] risk for bleeding probably exceeds any potential benefit from anticoagulation at this time. I would continue aspirin for his peripheral vascular disease and probable coronary disease. No other cardiac evaluation is planned at this time. The patient may be discharged when he is felt stable from a general medical standpoint. I thank the hospitalist physicians for asking our advice regarding the patient's care. NANYC LARSEN MD CM:PNTRANS 1150 120 NANCY LARSEN MD 10/25/17 1203 interface
--- NOTE | ~2017-10-22 | CON ---
[place], [place] REPORT OF CONSULTATION NAME: NANCY EM UNIT #: [id number] ROOM: [facility] DOCTOR: RAJI CHAMBERLAIN DPM BIRTHDATE: [birth year] DOS: 10/23/2017 SUBJECTIVE: The patient presents as a 62-year-old male who was admitted after becoming hypotensive and unresponsive during dialysis yesterday. The patient is seen for post-transmetatarsal amputation site of the left foot. PAST MEDICAL HISTORY: AFib; chronic congestive heart failure; COPD; CVA; ESRD, on dialysis; essential primary hypertension; folic acid deficiency; fracture, left lower extremity; hyperlipidemia; hypercoagulable state; macrocytic anemia; morbid obesity due to severe protein-calorie malnutrition; tobacco abuse; type 2 diabetes with hyperglycemia with long-term current use of insulin; vitamin D deficiency. PAST SURGICAL HISTORY: TMA, left foot; appendectomy; neck surgery; knee surgery; AV fistula; vascular surgery; veins removed from left groin according to the patient. SOCIAL HISTORY: Current smoker. Denies illicit drug use or alcohol. FAMILY HISTORY: Mother, age 84, history of hypertension and diabetes. Father, first FL in 60s, at age 74 of FL. ALLERGIES: No known allergies. LOWER EXTREMITY EXAMINATION: Pedal pulses diminished, decreased epicritic sensations post-transmetatarsal amputation site to the left foot noted with superficial opening to the medial aspect of the incision, but no signs of abscess, no signs of cellulitis, no infection, no drainage. ASSESSMENT: Post-TMA amputation of the left foot, diabetes, peripheral vascular disease, ulceration medial incision site of the TMA, left foot. PLAN: Evaluation and management. Ordered Bactroban and gauze dressing to be applied daily and we will reappoint with the patient for continued care and followup. RAJI CHAMBERLAIN DPM CM:CONSTR:REPORT OF CONSULTATION 1052 10/23/17 1203 interface
--- NOTE | ~2017-10-22 | PR ---
[place], [place] PROGRESS NOTE NAME: NANCY EM [facility] #: [id number] UNIT #: [id number] ROOM: 504 DOCTOR: RAJI CHAMBERLAIN DPM BIRTHDATE: [birth year] DOS: 10/28/2017 SUBJECTIVE: The patient was seen for followup of superficial wound dehiscence of post-transmetatarsal amputation site medial left mid foot. OBJECTIVE: There are no signs of purulent drainage or foul odor. No signs of abscess, no erythema. Superficial wound dehiscence to the medial post-TMA site, measuring 2.5 cm x 2.0 cm x 0.3 cm. No deep sinus tract or probing noted. ASSESSMENT: Dehiscence wound, ulceration post-TMA site, left foot and diabetes. PLAN: Evaluation and management. Betadine dressing applied this visit. The patient will continue with offloading. He is going home later today. He is to follow with his surgeon at the wound care center for possible further treatment of the post-TMA site, but the patient is stable at this time and no acute abscess noted. RAJI CHAMBERLAIN DPM CM:PNTRANS [id number] RAJI CHAMBERLAIN DPM 10/28/17 1238 interface
--- NOTE | ~2017-10-22 | CON ---
[place], [place] REPORT OF CONSULTATION NAME: NANCY EM UNIT #: [id number] ROOM: [facility] DOCTOR: NANCY LARSEN MD BIRTHDATE: [birth year] DOS: 10/23/2017 REASON FOR CONSULTATION: Hypotension and possible cardiac arrest. HISTORY OF PRESENT ILLNESS: The patient is a 62-year-old man who is known to have diabetes mellitus with end-stage renal failure, on renal replacement therapy. He states that he was at dialysis on the day of admission, 10/22/2017 when he passed out. Staff at the dialysis center could not find a radial pulse and began chest compressions. To my knowledge, the patient was not on a diagnostic cardiac sonographer at that time. While he was undergoing chest compressions, he became detached from the dialysis machine and lost considerable blood. He was brought to the emergency room after being given a fluid bolus. When EMS arrived, he apparently was in sinus rhythm and his blood pressure was palpable. Chest x-ray did show multiple left-sided rib fractures and therefore he was hospitalized. His initial hemoglobin was 10.4, but after equilibration, the hemoglobin dropped to 7.7. This morning it is 8.2. The patient does complain of left-sided chest pain and his left chest is tender to palpation, but he denies any shortness of breath, orthopnea or PND and is anxious for discharge. Serial troponin levels have all been normal on this admission. PAST MEDICAL HISTORY: Includes: 1. Type 2 diabetes mellitus complicated by end-stage renal disease. 2. Remote history of stroke. 3. End-stage renal disease, on dialysis. 4. Paroxysmal atrial fibrillation and flutter, first documented April 2017. 5. Morbid obesity. 6. Peripheral vascular disease, status post left mid foot amputation. 7. History of knee surgery, appendectomy and placement of AV fistula. 8. intermediate teacher and ongoing tobacco abuse. MEDICATIONS: Prior to admission, diltiazem CD 240 mg daily; Lexapro 10 mg daily; folic acid 1 mg daily; gabapentin 100 mg t.i.d.; Spritam 250 mg t.i.d. on Mondays, Wednesdays and Fridays b.i.d. on the other 4 days of the week; levothyroxine 112 mcg daily; omeprazole 20 mg daily; oxycodone q.6 hours p.r.n.; warfarin 2 mg at bedtime; insulin by sliding scale q.i.d. with meals and Basaglar insulin 6 units at bedtime. ALLERGIES: The patient has no known drug allergies. REVIEW OF SYSTEMS: The patient denies diplopia or loss of vision. He denies lightheadedness or syncope today, but did lose consciousness yesterday. He does not recall the event and cannot tell me what led up to it aside from the fact that he was on dialysis. He denies any focal weakness. He denies nausea or vomiting. He denies fevers, chills, sweats or recent weight change. He denies orthopnea or PND. He does receive his dialysis as scheduled and states that he does take his medications as prescribed, but his INR on admission was 1.1. He denies bleeding from his bowels or urine. He denies any change in bowel or bladder habits. He had a recent forefoot amputation as noted above. The [place], [place] REPORT OF CONSULTATION NAME: NANCY EM UNIT #: [id number] ROOM: [facility] DOCTOR: NANCY LARSEN MD BIRTHDATE: [birth year] remainder of the review of systems is negative except as noted above. SOCIAL HISTORY: The patient does not consume alcohol or illicit drugs, but he is a long-term and ongoing consumer of cigarettes. FAMILY HISTORY: His mother had a history of diabetes and hypertension. His father had his first heart attack in his 60s and is at age 74 from myocardial infarction. PHYSICAL EXAMINATION: GENERAL: The patient is a well-nourished white male who looks older than his stated age. VITAL SIGNS: Pulse is 82 and regular, blood pressure is 146/65. He is afebrile. He weighs 82.2 kg and has a body mass index of 29.3. HEENT: Normocephalic, atraumatic. Extraocular muscles are intact. Sclerae are clear. Pupils are equal, round and react to light. The oral mucosa is moist. Tongue is midline. NECK: Supple. He has no jugular distention. Carotids are full. I heard no bruits. Respirations were unlabored. His chest is clear to auscultation and percussion. CARDIOVASCULAR: His heart had a regular rhythm. He had fourth heart sound, but no third heart sound or obvious murmur. The PMI was not displaced. His left chest was tender to palpation. ABDOMEN: Soft and normally active. It is slightly distended. There was no fluid wave. No masses or organomegaly were present. EXTREMITIES: Showed no edema. Peripheral pulses were absent in the feet. Rib x-ray showed numerous bilateral rib fractures including right posterior 6th and anterolateral 7th through 9th and 10th rib fractures. These may be chronic. On the left, there is at least acute fractures from the 4th through the 8th ribs that are nondisplaced with an age indeterminate 9th through 11th rib fracture. There was no pneumothorax. I reviewed his electrocardiogram and it did show sinus rhythm. Voltage was low in the limb leads, but the tracing was otherwise unremarkable. IMPRESSIONS: 1. Hypotension during dialysis. Etiology not determined. It seems very unlikely that this was an arrhythmic event, although no monitor strips are available. The patient's troponin levels are normal and he did not receive any cardioversion or defibrillation shocks, so ventricular fibrillation is incredibly unlikely. Transient ventricular tachycardia could be present, but unfortunately was not documented. 2. Multiple rib fractures. 3. Diabetes, on insulin. 4. End-stage renal disease, on dialysis. 5. Peripheral vascular disease. 6. Paroxysmal atrial fibrillation and flutter, currently in sinus rhythm. PLAN: We will continue to monitor the patient in the hospital. We will obtain [place], [place] REPORT OF CONSULTATION NAME: NANCY EM UNIT #: [id number] ROOM: [facility] DOCTOR: NANCY LARSEN MD BIRTHDATE: [birth year] an echocardiogram as soon as it is available. If he has developed a marked decrease in left ventricular function, then further assessment of cardiac status including possible stress testing will be entertained. In the interim, he probably should be evaluated for systemic infection, sepsis, etc. We will follow the patient with his other physicians. We thank the hospitalist physicians for asking our advice regarding his care. NANCY LARSEN MD CM:CONSTR:REPORT OF CONSULTATION 1445 10/23/17 1601 interface
--- NOTE | ~2017-10-22 | PR ---
[place], [place] PROGRESS NOTE [id number] UN[facility] #: [id number] ROOM: [facility] DOCTOR: VIKTORIYA CASTRO DPM BIRTHDATE: [birth year] DOS: 10/25/2017 SUBJECTIVE: This patient is seen today for followup of wound on his left foot. He is status post transmetatarsal amputation 3 or 4 weeks ago. He has no complaints in regards to the foot. OBJECTIVE: Neurovascular status is unchanged. Transmetatarsal amputation of the left foot with superficial opening at the medial aspect of the incision, mild wound dehiscence is seen. There is no edema, erythema, purulent drainage or malodor. No increased temperature. No signs of infection. ASSESSMENT: Status post transmetatarsal amputation, left foot; ulceration, medial incision site of the transmetatarsal amputation, left foot. PLAN: Evaluation and management. Continue with local wound care daily. Continue with offloading. We will continue to follow while in the hospital and then he could follow up with his surgeon upon discharge. VIKTORIYA CASTRO DPM CM:PNTRANS [id number] VIKTORIYA CASTRO DPM 10/25/17 1157 interface
--- NOTE | ~2017-10-22 | PR ---
[place], [place] PROGRESS NOTE NAME: NANCY EM UNIT #: [id number] ROOM: [facility] DOCTOR: NANCY LARSEN MD BIRTHDATE: [birth year] DOS: 10/24/2017 CARDIOLOGY PROGRESS NOTE SUBJECTIVE: The patient was seen at his bedside today in the Intensive Care Unit on 10/24/2017. He is lying flat in bed and comfortable. He denies any dyspnea. He states that his chest is somewhat sore, but seems to be in no apparent distress. The patient's hemoglobin dropped from 8.2 yesterday to 7.2 today and he is being transfused another unit of packed cells. PHYSICAL EXAMINATION: VITAL SIGNS: Today his pulse is 80 and regular, blood pressure is 140/57. He is afebrile. He weighs 82.2 kg and has a body mass index of 29.3. NECK: Supple. He has no jugular distention. Carotids are full without bruits. LUNGS: Respirations are unlabored. His chest has decreased breath sounds and crackles at the bases, but no wheezes or obvious rales. He has no presacral edema. HEART: Has a regular rhythm. He has a fourth heart sound, but no third heart sound. The PMI is not displaced. ABDOMEN: Benign. EXTREMITIES: Showed trace edema. He does have a left forefoot amputation. IMPRESSION: 1. Hypotension during dialysis, etiology not yet determined. No arrhythmias have been documented and troponin levels are normal despite his receiving CPR. Unfortunately, no monitor strips are available from the event. 2. Multiple rib fractures. 3. Diabetes, on insulin. 4. End-stage renal disease, on dialysis. 5. Peripheral vascular disease. 6. Paroxysmal atrial fibrillation and flutter. Currently the patient is in sinus rhythm. 7. Blood loss during resuscitated events at the dialysis center. This is being replaced. PLAN: We will obtain an echocardiogram within the next 24 hours. If left ventricular function is preserved, no further cardiac evaluation is planned. I thank the hospitalist physicians for asking our advice regarding his care. [place], [place] PROGRESS NOTE NAME: NANCY EM UNIT #: [id number] ROOM: [facility] DOCTOR: NANCY LARSEN MD BIRTHDATE: [birth year] NANCY LARSEN MD CM:PNTRANS 48 NANCY LARSEN MD 10/24/171348 interface
--- NOTE | ~2017-10-22 | CON ---
[place], [place] REPORT OF CONSULTATION NAME: NANCY EM UNIT #: [id number] ROOM: 504 DOCTOR: KANDY BARBOZA DO BIRTHDATE: [birth year] DOS: 10/24/2017 RENAL CONSULTATION. REASON FOR CONSULTATION: End-stage renal disease. HISTORY OF PRESENT ILLNESS: This is a pleasant 62-year-old male. He has a prior history of COPD, paroxysmal atrial fibrillation, CVA, hypertension, hyperlipidemia, poor hypercoagulable state. He has type 2 diabetes mellitus with multiple end-organ complications, does have end-stage renal disease as a consequence of his diabetes. He receives dialysis every Wednesday, Wednesday and Wednesday at [facility]. His last outpatient dialysis occurred on 10/22/2017. He has been dialyzed since 2014, receives his dialysis through the left forearm AV graft. Presented to this institution after he became hypertensive, approximately 2 hours into his dialysis treatment. Apparently, he had dislodged his dialysis needle, it is unclear exactly what had happened. He does not recall the events surrounding this, but he was hypertensive. Apparently, the nursing staff was not sure if they could obtain a pulse. I did initiate CPR, once the patient back, he quickly recovered and apparently was oriented. Once awake, he denied any cardiac symptoms to them or to me, but was complaining of chest discomfort and was sent to the Emergency Room for further evaluation. X-rays in the Emergency Room revealed multiple rib fractures, some of the rib fractures may have been chronic, but there are at least 4 acute rib fractures in the left noted. He was afebrile. He was medically stable otherwise in the Emergency Room and hemoglobin and hematocrit were 10.4 and 33.4 in the Emergency Room with a white count of 9.7. Initial troponin I of 0.017 and then recheck of 0.003. Chemistries were rather unremarkable secondary to his end-stage renal disease and following his recent dialysis treatments. EKG apparently did not show any anomaly, showed only sinus rhythm. Given this constellation of symptoms and findings especially at his rib fractures, decided to admit the patient for further observation and evaluation. His troponins have been noted cycled, have been negative. He remained hemodynamically stable, afebrile since being admitted. Has complained of rib pain from his multiple rib fractures. No arrhythmias have occurred here. No other chest pain. No palpitations, orthopnea, PND, or dyspnea. Good appetite. No nausea, vomiting, or diarrhea. Hemoglobin has dropped through the course of this admission down to 7.2 as of today and thus receiving 1 unit of packed red blood cells. I see this patient for management of his end-stage renal disease. PAST MEDICAL HISTORY: See above. ALLERGIES: No known drug allergies. CURRENT MEDICATIONS: Keppra 250 mg q. 8 hours on Wednesday, Wednesday, and Wednesday and b.i.d. on Wednesday, , Wednesday and Wednesday; furosemide 10 mg IV x1; diltiazem 240 mg p.o. every day; aspirin 81 mg every day; Levemir 6 units every day; Neurontin 100 mg t.i.d., Percocet p.r.n., Nicoderm patch topically every day; mupirocin topically to the left foot every day; vitamin D 1000 International Units every day; folic acid 1 mg every day; Lexapro 10 mg every day; Prilosec 20 mg every day; levothyroxine 112 mcg p.o. every day; ketorolac [place], [place] REPORT OF CONSULTATION NAME: NANCY EM UNIT #: [id number] ROOM: [facility] DOCTOR: KANDY BARBOZA DO BIRTHDATE: [birth year] 30 mg IV q. 6h. p.r.n. SOCIAL HISTORY: He resides at home. FAMILY HISTORY: Noncontributory. REVIEW OF SYSTEMS: Please see HPI. Full 10-point review of system was performed and was unremarkable except as described in the HPI. PHYSICAL EXAMINATION: VITAL SIGNS: Blood pressure 169/89, pulse 82, respirations 16, temperature 98.9 degrees Fahrenheit. GENERAL APPEARANCE: Well-appearing male, awake, alert, oriented x 3, currently in no apparent distress. HEENT: Conjunctivae pink and moist. Oral mucosa pink and moist. Upper dentition is absent. NECK: There is no JVD, carotid bruit, or thyromegaly. There is no adenopathy appreciated. CHEST: Lungs are slightly diminished at the bases but otherwise clear to auscultation and percussion. HEART: Regular. No S3, rub, murmur or heave could be appreciated at present. ABDOMEN: Soft, positive bowel sounds x 4, nontender, without CVA tenderness. No rebound, guarding or rigidity noted. No flank bruits appreciated. NEUROLOGICALLY: Grossly nonfocal. EXTREMITIES: No clubbing or cyanosis. There is a right TMA noted, +1 pretibial edema noted. AV graft noted on the left arm, thrill and bruit present. SKIN: Warm and dry. LABORATORY DATA: Today, urine is yellow and cloudy. Specific gravity 1.0, 1.5, 2+ protein. too numerous to count wbc's, 3+ bacteria. CBC, 7.9, hemoglobin 7.2, hematocrit 23.5, platelets 180,000. Sodium is 129, potassium 4.1, chloride 101, CO2 29, BUN 26, creatinine 4.0. Glucose is 65, calcium is 7.5, albumin is 1.8. Corrected calcium is 9.3, total protein is 5.2. ALT is 10, AST is 13, alkaline phosphatase is 117, troponin was 0.2. ASSESSMENT: 1. End-stage renal disease. Current volume status is satisfactory. Electrolytes are satisfactory. 2. Hypertension. Blood pressure satisfactory control. 3. Anemia. Hemoglobin and hematocrit have decreased, presumably as a consequence of acute blood loss. He is maintained on Aranesp with dialysis 25 mcg weekly. 4. Question cardiac arrest, seems unlikely. Cardiology is evaluating the patient for an echocardiogram in the morning. 5. Rib fractures, multiple as a consequence of chest compressions. Conservative management using incentive spirometry. RECOMMENDATIONS: We will put him on routine hemodialysis on 10/24/2017. Thank you for allowing us to participate in the care of the patient. [place], [place] REPORT OF CONSULTATION NAME: TIMMYMISTINANCY UNIT #: [id number] ROOM: 504 DOCTOR: KANDY BARBOZA DO BIRTHDATE: [birth year] KANDY BARBOZA DO CM:CONSTR:REPORT OF CONSULTATION 1544 10/29/17 1326 interface
[~2017-10-22 12:06] MED LIST: ASPIR 8181 MG PO; CLARITIN10 MG PO; DILTIAZEM CD240 MG PO; DOXYCYCLINE MO100 M1 PO; ESCITALOPRAM OX10 MG PO; LEVOXYL112 MCG PO; MAGNESIUM OXID400 MG PO; NATURE'S BLEND F1 MG PO; NEURONTIN300 MG PO; PANTOPRAZOLE SO40 MG PO; PREDNISONE50 MG PO; RENVELA800 MG PO; SIMVASTATIN20 MG PO; SPRITAM250 MG PO; TAMSULOSIN HCL0.4 MG PO; Vitamin D PO; WARFARIN SOD2 MG PO
[2017-10-22 12:53] LABS: BASO # 0.1 10*3/uL (0.0-0.1); BASO % 0.4 % (0.0-1.0); EOS # 0.2 10*3/uL (0.0-0.4); EOS % 1.6 % (1.0-4.0); HEMATOCRIT 33.4 % (42.0-52.0); HEMOGLOBIN 10.4 g/dl (14.0-18.0); LYMPH # 2.1 10*3/uL (1.3-4.4); MEAN CELL VOLUME 97.4 fl (80.0-94.0); MEAN CORPUSCULAR HGB 30.3 pg (27.0-31.0); MEAN CORPUSCULAR HGB CONC 31.1 g/dl (33.0-37.0); MEAN PLATELET VOLUME 9.5 fl (9.6-12.3); MONO # 0.6 10*3/uL (0.1-1.0); MONO % 4.2 % (3.0-9.0); NEUT # 11.9 10*3/uL (2.3-7.9); PLATELET COUNT AUTOMATED 236 10*3/uL (130-400); RED BLOOD COUNT 3.43 10*6/uL (4.50-5.90); RED CELL DISTRI WIDTH 14.6 % (0-14.5); WHITE BLOOD COUNT 15.1 10*3/uL (4.8-10.8)
[2017-10-22 13:07] LABS: ACT PARTIAL THROMBO TIME 26.7 SECONDS (20.8-31.5); INTERNATIONAL NORM RATIO 1.1 (2.0-3.5)
[2017-10-22 13:12] LABS: ALBUMIN 1.9 gm/dl (3.1-4.5); CREATININE 2.28 mg/dL (0.70-1.30); POTASSIUM 4.1 mmol/L (3.5-5.1); TOTAL PROTEIN 5.8 gm/dL (6.4-8.2)
[2017-10-22] MEDS ORDERED: WARFARIN2 MG PO (16:47)
[2017-10-22] MEDS ORDERED: LEXAPRO10 MG PO (16:48)
[2017-10-22] MEDS ORDERED: NATURE'S BLEND F1 MG PO (16:48)
[2017-10-22] MEDS ORDERED: CARDIZEM CD240 M1 PO (16:48)
[2017-10-22] MEDS ORDERED: PRILOSEC20 M1 PO (16:49)
[2017-10-22] MEDS ORDERED: SYNTHROID,LEV112 MCG PO (16:49)
[2017-10-22] MEDS ORDERED: NEURONTIN100 MG PO (16:55)
[2017-10-22] MEDS ORDERED: PERCOCET 10-321 EACH PO (16:55)
[2017-10-22] MEDS ORDERED: SPRITAM250 MG PO ×2 (17:02→17:04)
[2017-10-22] MEDS ORDERED: NOVOLOG100 UNIT/1 SQ (17:06)
[2017-10-22] MEDS ORDERED: BASAGLAR SQ (17:11)
[2017-10-22 20:16] LABS: BASO % 0.4 % (0.0-1.0); EOS # 0.1 10*3/uL (0.0-0.4); EOS % 1.1 % (1.0-4.0); LYMPH # 1.6 10*3/uL (1.3-4.4); LYMPH % 16.1 % (27.0-41.0); MEAN CELL VOLUME 98.5 fl (80.0-94.0); MEAN CORPUSCULAR HGB 30.9 pg (27.0-31.0); MEAN CORPUSCULAR HGB CONC 31.4 g/dl (33.0-37.0); MEAN PLATELET VOLUME 9.6 fl (9.6-12.3); MONO # 0.6 10*3/uL (0.1-1.0); MONO % 6.1 % (3.0-9.0); NEUT # 7.3 10*3/uL (2.3-7.9); NEUT % 75.6 % (47.0-73.0); PLATELET COUNT AUTOMATED 190 10*3/uL (130-400); RED BLOOD COUNT 2.62 10*6/uL (4.50-5.90); RED CELL DISTRI WIDTH 14.6 % (0-14.5); WHITE BLOOD COUNT 9.7 10*3/uL (4.8-10.8)
[2017-10-22 20:20] LABS: HEMATOCRIT 25.8 % (42.0-52.0); HEMOGLOBIN 8.1 g/dl (14.0-18.0)
[2017-10-23] VITALS: BP 135/48
[2017-10-23 00:13] LABS: HEMATOCRIT 24.2 % (42.0-52.0); HEMOGLOBIN 7.7 g/dl (14.0-18.0)
[2017-10-23 04:00] VITALS: BP 122/45
[2017-10-23 05:51] LABS: ALBUMIN 1.8 gm/dl (3.1-4.5); CREATININE 3.24 mg/dL (0.70-1.30); FREE T4 0.84 ng/dl (0.76-1.46); PHOSPHOROUS 4.9 mg/dL (2.5-4.9); TOTAL PROTEIN 5.4 gm/dL (6.4-8.2)
[2017-10-23 06:00] LABS: BASO # 0.1 10*3/uL (0.0-0.1); BASO % 0.6 % (0.0-1.0); EOS # 0.3 10*3/uL (0.0-0.4); EOS % 3.4 % (1.0-4.0); HEMOGLOBIN 8.2 g/dl (14.0-18.0); LYMPH % 23.4 % (27.0-41.0); MEAN CELL VOLUME 99.6 fl (80.0-94.0); MEAN CORPUSCULAR HGB 30.3 pg (27.0-31.0); MEAN CORPUSCULAR HGB CONC 30.4 g/dl (33.0-37.0); MEAN PLATELET VOLUME 9.9 fl (9.6-12.3); MONO # 0.7 10*3/uL (0.1-1.0); MONO % 7.7 % (3.0-9.0); NEUT # 5.6 10*3/uL (2.3-7.9); NEUT % 64.2 % (47.0-73.0); PLATELET COUNT AUTOMATED 224 10*3/uL (130-400); RED BLOOD COUNT 2.71 10*6/uL (4.50-5.90); RED CELL DISTRI WIDTH 14.7 % (0-14.5); WHITE BLOOD COUNT 8.7 10*3/uL (4.8-10.8)
[2017-10-23 06:23] LABS: INTERNATIONAL NORM RATIO 1.2 (2.0-3.5)
[2017-10-23 06:55] LABS: POTASSIUM 4.7 mmol/L (3.5-5.1)
[2017-10-23 07:10] LABS: THYROID STIM HORMONE (HS) 0.205 uIU/ml (0.358-4.75)
[2017-10-23 08:00] VITALS: BP 143/92
[2017-10-23 08:20] LABS: VITAMIN D, 25-HYDROXY 16.5 ng/mL (30-100)
[2017-10-23 12:00] VITALS: BP 146/65
[2017-10-23 16:00] VITALS: BP 156/63
[2017-10-23 20:00] VITALS: BP 145/60
[2017-10-24] VITALS (12 sets, daily range): BP systolic 129–161; BP diastolic 50–84
[2017-10-24 04:22] LABS: BASO # 0.1 10*3/uL (0.0-0.1); BASO % 0.6 % (0.0-1.0); EOS # 0.3 10*3/uL (0.0-0.4); EOS % 3.5 % (1.0-4.0); HEMATOCRIT 23.3 % (42.0-52.0); HEMOGLOBIN 7.2 g/dl (14.0-18.0); LYMPH # 1.6 10*3/uL (1.3-4.4); LYMPH % 20.2 % (27.0-41.0); MEAN CELL VOLUME 98.7 fl (80.0-94.0); MEAN CORPUSCULAR HGB 30.5 pg (27.0-31.0); MEAN CORPUSCULAR HGB CONC 30.9 g/dl (33.0-37.0); MEAN PLATELET VOLUME 9.4 fl (9.6-12.3); MONO # 0.5 10*3/uL (0.1-1.0); MONO % 6.2 % (3.0-9.0); NEUT # 5.5 10*3/uL (2.3-7.9); NEUT % 69.1 % (47.0-73.0); PLATELET COUNT AUTOMATED 188 10*3/uL (130-400); RED BLOOD COUNT 2.36 10*6/uL (4.50-5.90); RED CELL DISTRI WIDTH 14.5 % (0-14.5); WHITE BLOOD COUNT 7.9 10*3/uL (4.8-10.8)
[2017-10-24 04:33] LABS: INTERNATIONAL NORM RATIO 1.4 (2.0-3.5)
[2017-10-24 04:39] LABS: ALBUMIN 1.8 gm/dl (3.1-4.5); CREATININE 4.1 mg/dL (0.70-1.30); POTASSIUM 4.9 mmol/L (3.5-5.1); TOTAL PROTEIN 5.2 gm/dL (6.4-8.2)
[2017-10-24 12:40] LABS: BILIRUBIN NEGATIVE (NEGATIVE); BLOOD TRACE-INTACT (NEGATIVE); CLARITY CLOUDY (CLEAR); COLOR YELLOW (YELLOW); GLUCOSE TRACE (NEGATIVE); KETONE NEGATIVE (NEGATIVE); LEUKO ESTERASE 2+ (NEGATIVE); NITRITE NEGATIVE (NEGATIVE); SPECIFIC GRAVITY 1.015 (1.005-1.030); UROBILINOGEN 0.2 E.U./dl (0.2-1.0)
[2017-10-24 13:18] LABS: BACTERIA 3+; WBC TNTC wbc/hpf (0-5)
[2017-10-24 16:12] LABS: HEMATOCRIT 29.4 % (42.0-52.0); HEMOGLOBIN 9.4 g/dl (14.0-18.0)
[2017-10-25] VITALS: BP 115/45
[2017-10-25 04:00] VITALS: BP 140/52
[2017-10-25 04:27] LABS: BASO % 0.5 % (0.0-1.0); EOS # 0.3 10*3/uL (0.0-0.4); HEMATOCRIT 26.2 % (42.0-52.0); HEMOGLOBIN 8.1 g/dl (14.0-18.0); LYMPH # 1.9 10*3/uL (1.3-4.4); LYMPH % 24.3 % (27.0-41.0); MEAN CELL VOLUME 98.9 fl (80.0-94.0); MEAN CORPUSCULAR HGB 30.6 pg (27.0-31.0); MEAN CORPUSCULAR HGB CONC 30.9 g/dl (33.0-37.0); MEAN PLATELET VOLUME 9.6 fl (9.6-12.3); MONO # 0.6 10*3/uL (0.1-1.0); MONO % 7.1 % (3.0-9.0); NEUT # 4.9 10*3/uL (2.3-7.9); NEUT % 63.6 % (47.0-73.0); PLATELET COUNT AUTOMATED 180 10*3/uL (130-400); RED BLOOD COUNT 2.65 10*6/uL (4.50-5.90); RED CELL DISTRI WIDTH 14.3 % (0-14.5); WHITE BLOOD COUNT 7.7 10*3/uL (4.8-10.8)
[2017-10-25 04:38] LABS: INTERNATIONAL NORM RATIO 1.2 (2.0-3.5)
[2017-10-25 04:42] LABS: ALBUMIN 1.7 gm/dl (3.1-4.5); CREATININE 4.8 mg/dL (0.70-1.30); PHOSPHOROUS 6.2 mg/dL (2.5-4.9); POTASSIUM 4.8 mmol/L (3.5-5.1)
[2017-10-25 08:00] VITALS: BP 147/62
[2017-10-25 12:00] VITALS: BP 155/64
[2017-10-25 16:00] VITALS: BP 164/79
[2017-10-25 20:00] VITALS: BP 152/72
[2017-10-26] VITALS: BP 130/70
[2017-10-26 04:00] VITALS: BP 143/52
[2017-10-26 05:39] LABS: ALBUMIN 1.9 gm/dl (3.1-4.5); CREATININE 3.36 mg/dL (0.70-1.30); PHOSPHOROUS 4.6 mg/dL (2.5-4.9); POTASSIUM 4.6 mmol/L (3.5-5.1)
[2017-10-26 05:47] LABS: INTERNATIONAL NORM RATIO 1.1 (2.0-3.5)
[2017-10-26 05:59] LABS: BASO # 0.1 10*3/uL (0.0-0.1); BASO % 0.6 % (0.0-1.0); EOS # 0.2 10*3/uL (0.0-0.4); HEMATOCRIT 29.1 % (42.0-52.0); HEMOGLOBIN 9.4 g/dl (14.0-18.0); LYMPH % 24.9 % (27.0-41.0); MEAN CELL VOLUME 97.7 fl (80.0-94.0); MEAN CORPUSCULAR HGB 31.5 pg (27.0-31.0); MEAN CORPUSCULAR HGB CONC 32.3 g/dl (33.0-37.0); MONO # 0.6 10*3/uL (0.1-1.0); MONO % 7.8 % (3.0-9.0); NEUT % 63.2 % (47.0-73.0); RED BLOOD COUNT 2.98 10*6/uL (4.50-5.90); RED CELL DISTRI WIDTH 14.1 % (0-14.5)
[2017-10-26 06:05] LABS: PLATELET COUNT AUTOMATED 246 10*3/uL (130-400)
[2017-10-26 08:00] VITALS: BP 122/50
[2017-10-26 12:00] VITALS: BP 118/46
[2017-10-26 16:00] VITALS: BP 124/56
[2017-10-26 20:00] VITALS: BP 135/55
[2017-10-27] VITALS: BP 138/52
[2017-10-27 05:54] LABS: BASO # 0.1 10*3/uL (0.0-0.1); BASO % 0.6 % (0.0-1.0); EOS # 0.3 10*3/uL (0.0-0.4); EOS % 3.2 % (1.0-4.0); HEMATOCRIT 29.2 % (42.0-52.0); HEMOGLOBIN 9.4 g/dl (14.0-18.0); LYMPH % 19.5 % (27.0-41.0); MEAN CELL VOLUME 97.3 fl (80.0-94.0); MEAN CORPUSCULAR HGB 31.3 pg (27.0-31.0); MEAN CORPUSCULAR HGB CONC 32.2 g/dl (33.0-37.0); MEAN PLATELET VOLUME 9.8 fl (9.6-12.3); MONO # 0.8 10*3/uL (0.1-1.0); MONO % 7.9 % (3.0-9.0); NEUT # 6.9 10*3/uL (2.3-7.9); NEUT % 68.4 % (47.0-73.0); PLATELET COUNT AUTOMATED 264 10*3/uL (130-400); RED CELL DISTRI WIDTH 13.8 % (0-14.5); WHITE BLOOD COUNT 10.1 10*3/uL (4.8-10.8)
[2017-10-27 06:10] LABS: ALBUMIN 1.9 gm/dl (3.1-4.5); CREATININE 4.28 mg/dL (0.70-1.30); PHOSPHOROUS 5.5 mg/dL (2.5-4.9); POTASSIUM 4.4 mmol/L (3.5-5.1)
[2017-10-27 08:00] VITALS: BP 145/55
[2017-10-27 16:00] VITALS: BP 191/84
[2017-10-27 20:00] VITALS: BP 96/44
[2017-10-28] VITALS: BP 132/57
[2017-10-28 06:08] LABS: BASO # 0.1 10*3/uL (0.0-0.1); BASO % 0.8 % (0.0-1.0); EOS # 0.2 10*3/uL (0.0-0.4); EOS % 2.6 % (1.0-4.0); HEMATOCRIT 30.5 % (42.0-52.0); HEMOGLOBIN 9.6 g/dl (14.0-18.0); LYMPH # 1.8 10*3/uL (1.3-4.4); LYMPH % 24.6 % (27.0-41.0); MEAN CELL VOLUME 97.8 fl (80.0-94.0); MEAN CORPUSCULAR HGB 30.8 pg (27.0-31.0); MEAN CORPUSCULAR HGB CONC 31.5 g/dl (33.0-37.0); MONO # 0.8 10*3/uL (0.1-1.0); MONO % 10.9 % (3.0-9.0); NEUT # 4.5 10*3/uL (2.3-7.9); NEUT % 60.7 % (47.0-73.0); PLATELET COUNT AUTOMATED 284 10*3/uL (130-400); RED BLOOD COUNT 3.12 10*6/uL (4.50-5.90); RED CELL DISTRI WIDTH 13.9 % (0-14.5); WHITE BLOOD COUNT 7.4 10*3/uL (4.8-10.8)
[2017-10-28 06:14] LABS: ALBUMIN 1.9 gm/dl (3.1-4.5); CREATININE 3.8 mg/dL (0.70-1.30); POTASSIUM 4.9 mmol/L (3.5-5.1)
[2017-10-28 06:15] LABS: PHOSPHOROUS 4.9 mg/dL (2.5-4.9)
[2017-10-28 08:00] VITALS: BP 135/55
[2017-10-28 12:00] VITALS: BP 126/52
[2017-10-28] MEDS ORDERED: Vitamin D PO (13:25)
[2017-10-28] MEDS ORDERED: Coumadin3 MG PO (13:25)
== END 2017-10-28 16:40 | disposition home or self-care (01) | DRG 919 ==
LOC: ED 12:06 → EDHOLD 15:14 → ICCU 15:14 → 5E 15:14 → ICCU 15:23 → 5E 10-26 17:29
PROVIDERS: Emergency Medicine; Internal Medicine; Internal Medicine Hospice and Palliative Medicine; Internal Medicine Nephrology
PROC: 30233N1 Transfusion of Nonautologous Red Blood Cells into Peripheral Vein, Percutaneous Approach (ICD-10-PCS; principal; 2017-10-22)
PROC: 5A12012 Performance of Cardiac Output, Single, Manual (ICD-10-PCS; principal; 2017-10-22)
PROC: 5A1D70Z Performance of Urinary Filtration, Intermittent, Less than 6 Hours Per Day (ICD-10-PCS; 2017-10-25)
PROC: 5A1D70Z Performance of Urinary Filtration, Intermittent, Less than 6 Hours Per Day (ICD-10-PCS; 2017-10-27)
DX: T81.30XA Disruption of wound, unspecified, initial encounter (principal); I46.9 Cardiac arrest, cause unspecified; R65.11 Systemic inflammatory response syndrome (SIRS) of non-infectious origin with acute organ dysfunction; E43 Unspecified severe protein-calorie malnutrition; I13.2 Hypertensive heart and chronic kidney disease with heart failure and with stage 5 chronic kidney disease, or end stage renal disease; D68.59 Other primary thrombophilia; E11.22 Type 2 diabetes mellitus with diabetic chronic kidney disease; N18.6 End stage renal disease; I50.32 Chronic diastolic (congestive) heart failure; S22.43XA Multiple fractures of ribs, bilateral, initial encounter for closed fracture; I48.92 Unspecified atrial flutter; I95.3 Hypotension of hemodialysis; E11.51 Type 2 diabetes mellitus with diabetic peripheral angiopathy without gangrene; E11.65 Type 2 diabetes mellitus with hyperglycemia; I48.0 Paroxysmal atrial fibrillation; D53.9 Nutritional anemia, unspecified; J44.9 Chronic obstructive pulmonary disease, unspecified; E03.9 Hypothyroidism, unspecified; K21.9 Gastro-esophageal reflux disease without esophagitis; F32.9 Major depressive disorder, single episode, unspecified; D72.810 Lymphocytopenia; R74.8 Abnormal levels of other serum enzymes; E78.5 Hyperlipidemia, unspecified; E53.8 Deficiency of other specified B group vitamins; E55.9 Vitamin D deficiency, unspecified; E66.3 Overweight; G89.29 Other chronic pain; E66.01 Morbid (severe) obesity due to excess calories; Z83.3 Family history of diabetes mellitus; Z71.6 Tobacco abuse counseling; Z99.2 Dependence on renal dialysis; Z79.4 Long term (current) use of insulin; Z89.432 Acquired absence of left foot; Z86.73 Personal history of transient ischemic attack (TIA), and cerebral infarction without residual deficits; Z90.49 Acquired absence of other specified parts of digestive tract; Z82.49 Family history of ischemic heart disease and other diseases of the circulatory system; Z79.899 Other long term (current) drug therapy; Y83.8 Other surgical procedures as the cause of abnormal reaction of the patient, or of later complication, without mention of misadventure at the time of the procedure; Y92.89 Other specified places as the place of occurrence of the external cause; Z68.29 Body mass index [BMI] 29.0-29.9, adult

== ENCOUNTER 2018-08-31 12:27 | Emergency (ER) | payer MEDICARE, BC ==
[~2018-08-31] VITALS: Ht 177.8 cm; Wt 82.7 kg
--- NOTE | ~2018-08-31 | EKG ---
[place], [place] ELECTROCARDIOGRAM REPORT NAME: NANCY ME UNIT #: [id number] ROOM: DOCTOR: EPIPHANY DRAFT REPORT BIRTHDATE: [birth year] [facility] Test Date: 2018-08-31 Test Time: 13:08:01 Pat Name: NANCY EM Department: Room: Gender: Patient Account Specialist: : [id number] Requested By: STACI ROJAS DNP Order Number: [id number] Reading MD: Kings Schultz MD Measurements Intervals [place] Rate: 71 P: [place]: QRS: 91 QRSD: 112 T: 71 QT: 462 QTc: 503 Interpretive Statements Atrial fibrillation Left posterior fascicular block Prolonged QT interval N Electronically Signed On 09-02-2018 9:42:43 PST by Kings Schultz MD CM:EKGRPT:ELECTROCARDIOGRAM REPORT [id number] STACI VELARDE DRAFT REPORT STACI ROJAS DNP
[~2018-08-31 12:27] MED LIST changes: +BASAGLAR SQ; +CARDIZEM CD240 M1 PO; +Coumadin3 MG PO; +LEXAPRO10 MG PO; +NEURONTIN100 MG PO; +NOVOLOG100 UNIT/1 SQ; +PERCOCET 10-321 EACH PO; +PRILOSEC20 M1 PO; +SYNTHROID,LEV112 MCG PO; +WARFARIN2 MG PO
[2018-08-31 13:16] LABS: BASO % 0.4 % (0.0-1.0); EOS # 0.1 10*3/uL (0.0-0.4); EOS % 0.6 % (1.0-4.0); HEMATOCRIT 35.1 % (42.0-52.0); HEMOGLOBIN 10.7 g/dl (14.0-18.0); LYMPH # 1.4 10*3/uL (1.3-4.4); LYMPH % 17.5 % (27.0-41.0); MEAN CELL VOLUME 97.2 fl (80.0-94.0); MEAN CORPUSCULAR HGB 29.6 pg (27.0-31.0); MEAN CORPUSCULAR HGB CONC 30.5 g/dl (33.0-37.0); MEAN PLATELET VOLUME 10.6 fl (9.6-12.3); MONO # 0.4 10*3/uL (0.1-1.0); MONO % 5.3 % (3.0-9.0); NEUT # 5.8 10*3/uL (2.3-7.9); NEUT % 74.9 % (47.0-73.0); PLATELET COUNT AUTOMATED 144 10*3/uL (130-400); RED BLOOD COUNT 3.61 10*6/uL (4.50-5.90); RED CELL DISTRI WIDTH 17.1 % (0-14.5); WHITE BLOOD COUNT 7.8 10*3/uL (4.8-10.8)
[2018-08-31 13:27] LABS: ACT PARTIAL THROMBO TIME 33.9 SECONDS (20.8-31.5); INTERNATIONAL NORM RATIO 2.4 (2.0-3.5)
[2018-08-31 13:33] LABS: CREATININE 4.08 mg/dL (0.70-1.30); POTASSIUM 3.9 mmol/L (3.5-5.1); TOTAL PROTEIN 6.6 gm/dL (6.4-8.2)
== END 2018-08-31 15:10 | disposition short-term general hospital (02) ==
LOC: ED 12:27
PROVIDERS: Nurse Practitioner Family
DX: S51.812A Laceration without foreign body of left forearm, initial encounter (principal); T82.590A Other mechanical complication of surgically created arteriovenous fistula, initial encounter; R55 Syncope and collapse; I95.9 Hypotension, unspecified; R79.89 Other specified abnormal findings of blood chemistry; E11.22 Type 2 diabetes mellitus with diabetic chronic kidney disease; N18.6 End stage renal disease; E11.40 Type 2 diabetes mellitus with diabetic neuropathy, unspecified; I48.91 Unspecified atrial fibrillation; J44.9 Chronic obstructive pulmonary disease, unspecified; G40.909 Epilepsy, unspecified, not intractable, without status epilepticus; Z79.899 Other long term (current) drug therapy; F17.200 Nicotine dependence, unspecified, uncomplicated; Z79.4 Long term (current) use of insulin; Z90.49 Acquired absence of other specified parts of digestive tract; Z86.73 Personal history of transient ischemic attack (TIA), and cerebral infarction without residual deficits; Z99.2 Dependence on renal dialysis; X58.XXXA Exposure to other specified factors, initial encounter; Y93.89 Activity, other specified; Y92.89 Other specified places as the place of occurrence of the external cause; Y99.8 Other external cause status